=== PATIENT | male | born 1955 | race Caucasian/White ===

== ENCOUNTER → 2019-02-02 08:05 | Outpatient (CLI) | payer OTHER, SELFPAY ==
[2019-02-02 09:21] LABS: Hematocrit 41.7 % (41-53); Hemoglobin 14.2 g/dL (13.5-17.5); Mean Corpuscular HGB Conc 34.1 % (30-36); Mean Corpuscular Hemoglobin 31.5 PG (26-34); Mean Corpuscular Volume 92.4 fL (80-100); Platelet Count 221 X10^3/uL (150-400); Red Blood Cell Count 4.51 X10^6/uL (4.5-5.9); Red Cell Distribution Width 13.9 % (11.6-14.8); White Blood Cell Count 6.7 X10^3/uL (4.5-11.0)
[2019-02-02 09:25] LABS: Alanine Aminotransferase 45 IU/L (21-72); Albumin 4.4 g/dL (3.5-5.0); Albumin Globulin Ratio 1.5 (1.0-2.8); Alkaline Phosphatase 72 U/L (38-126); Aspartate Aminotransferase 34 IU/L (17-59); Bilirubin Total 0.9 mg/dL (0.2-1.3); Blood Urea Nitrogen 16 mg/dL (9-20); Calcium 9.4 mg/dL (8.4-10.2); Carbon Dioxide 30 mmol/L (22-32); Chloride 101 mmol/L (98-107); Cholesterol 219 mg/dL (140-199); Estimated Glomerular Filt Rate > 60.0 mL/min (>60); Globulin 2.9 g/dL (1.7-4.1); Glucose 105 mg/dL (80-110); HDL Cholesterol 60 mg/dL (40-60); HEMOLYSIS < 15 (0-50); LDL Cholesterol Calculated 128 mg/dL (<100); Potassium 4.4 mmol/L (3.4-5.1); Sodium 139 mmol/L (137-145); Total Protein 7.3 g/dL (6.3-8.2); Triglycerides 154 mg/dL (35-150)
[2019-02-02 09:52] LABS: Prostate Specific Antigen Scrn 1.77 ng/mL (0.1-4.0)
[2019-02-02 10:11] LABS: Neutrophils Absolute Manual 3886 /uL (3000-5900); Total Cells Counted 100
[2019-02-02 10:12] LABS: RBC Morphology Normal Morphology
[2019-02-02 10:21] LABS: TSH w/ Reflex to FT4 4.02 uIU/mL (0.47-4.68)
== END ==
PROVIDERS: PCP Family Medicine; Visit Provider Family Medicine
DX: I10 Essential (primary) hypertension (principal)
CPT/HCPCS: 36415; 80053; 80061; 84443; 85025; G0103

== ENCOUNTER → 2021-03-01 08:27 | Outpatient (CLI) | payer MEDICARE, OTHER, SELFPAY ==
[2021-03-01 09:36] LABS: Add Manual Diff / Slide Review NO; Basophils Absolute Auto 100 /uL (0-100); Basophils Percent Auto 0.7 % (0-2); Eosinophils Absolute Auto 100 /uL (0-450); Eosinophils Percent Auto 1.9 % (2-4); Hematocrit 43.1 % (41-53); Hemoglobin 14.5 g/dL (13.5-17.5); Lymphocytes Absolute Auto 1700 /uL (1100-4500); Lymphocytes Percent Auto 23.9 % (25-40); Mean Corpuscular HGB Conc 33.7 % (30-36); Mean Corpuscular Hemoglobin 30.9 PG (26-34); Mean Corpuscular Volume 91.7 fL (80-100); Monocytes Absolute Auto 800 /uL (0-900); Monocytes Percent Auto 10.4 % (3-14); Neutrophils Absolute Auto 4500 /uL (1500-7000); Neutrophils Percent Auto 63.1 % (50-75); Platelet Count 207 X10^3/uL (150-400); Red Cell Distribution Width 13.5 % (11.6-14.8); White Blood Cell Count 7.2 X10^3/uL (4.5-11.0)
[2021-03-01 09:57] LABS: Alanine Aminotransferase 66 IU/L (<50); Albumin 4.2 g/dL (3.5-5.0); Albumin Globulin Ratio 1.4 (1.0-2.8); Alkaline Phosphatase 75 U/L (38-126); Aspartate Aminotransferase 46 IU/L (17-59); BUN Creatinine Ratio 19.4 (6-22); Blood Urea Nitrogen 19 mg/dL (9-20); Calcium 9.7 mg/dL (8.4-10.2); Carbon Dioxide 32 mmol/L (22-32); Chloride 97 mmol/L (98-107); Cholesterol 232 mg/dL (140-199); Estimated Glomerular Filt Rate > 60.0 mL/min (>60); Globulin 2.9 g/dL (1.7-4.1); Glucose 118 mg/dL (80-110); HDL Cholesterol 60 mg/dL (40-60); HEMOLYSIS < 15 (0-50); LDL Cholesterol Calculated 146 mg/dL (<100); Potassium 4.8 mmol/L (3.4-5.1); Sodium 137 mmol/L (137-145); Total Protein 7.1 g/dL (6.3-8.2); Triglycerides 128 mg/dL (35-150)
== END ==
PROVIDERS: PCP Family Medicine; Referring Provider Family Medicine; Visit Provider Family Medicine
DX: E78.5 Hyperlipidemia, unspecified (principal)
CPT/HCPCS: 36415; 80053; 80061; 85025

== ENCOUNTER → 2021-05-26 10:29 | Outpatient (CLI) | payer MEDICARE, OTHER, SELFPAY ==
[2021-05-26 12:43] LABS: COVID19 -Nasal RAPID Negative (Negative)
== END ==
PROVIDERS: PCP Family Medicine; Visit Provider Surgery
DX: Z01.812 Encounter for preprocedural laboratory examination (principal); Z20.822 Contact with and (suspected) exposure to COVID-19
CPT/HCPCS: 87635; C9803

== ENCOUNTER 2021-05-27 13:12 | Day surgery (SDC) | payer MEDICARE, OTHER, SELFPAY ==
--- NOTE | 2021-05-27 | PATH_ITS ---
[facility] Accession Number: [id number] . 01 Material submitted: . sigmoid colon - SIGMOID POLYP . 02 Diagnosis: Sigmoid Colon, Polyp, Biopsy: Tubular adenoma. MRV 05/31/2021 1212 Local . 02 Electronically signed: . Veronica Dyson MD, Pathologist NPI- [id number] . 01 Gross description: . SIGMOID POLYP: Received in formalin is 1 fragment(s) of giang, soft tissue measuring 1.3 x 1.0 x 0.6 cm submitted entirely in 1 cassette(s) /MILI 05/28/2021 0657 Local . 02 Pathologist provided ICD-10: D12.5 . 02 CPT . 717997 Performed at: 01 [facility] [address] [id number] MD Davion Humphrey MD Phone: [phone] Performed at: 02 [facility] [address] [place], [place] [id number] MD Veronica Dyson MD Phone: [phone]
[2021-05-27 13:59] VITALS: BMI 32.3
[2021-05-27 14:20] VITALS: BP 125/79; PULSE 101; RESP 18; TEMP 36.7; O2SAT 99
[2021-05-27] MEDS: LACTATED RINGERS 1,000 ML 200 ML IV (14:23)
--- NOTE | 2021-05-27 14:33 | PM.HP.1 ---
History of Present Illness History of Present Illness Date Patient Seen: 05/27/21 Time Patient Seen: 14:33 Date of Onset of Symptoms: 05/27/21 Chief complaint: SDC Narrative: The patient presents for colorectal sreening. Previous colonoscopy 10 years ago demonstrated 2 benign polyps. No personal or family history of colon cancer. On further history denies any recent gastrointestinal symptoms. No nausea, vomiting, abdominal pain, loss of appetite, unexplained weight loss, change in bowel habits, diarrhea, constipation, melena, hematochezia, or bright red blood per rectum. Patient History Family & Social History Social History: household members spouse lives independently Yes caregiver/support person No other Patient has Advance Directives, DPAHC. Does not wish to starve to . Tobacco & Substance use: Smoking Status Never smoker alcohol intake current alcohol intake frequency 0-2 drinks per day Substance Use Type does not use Meds Home Medications and Allergies Home Medications Medication Instructions Recorded Confirmed Type lisinopril 20 tab 05/27/21 History mg-hydrochlorothiazide 12.5 mg tablet Allergies Allergy/AdvReac Type Severity Reaction Status Date / Time No Known Allergies Allergy Unknown Uncoded 05/27/21 13:55 Review of Systems Review of Systems Narrative: A 10 point review of systems is negative except as noted in the HPI Exam Vital Signs (past 8 hours): - 05/27/21 14:20 Temperature 98.1 F Pulse Rate 101 H Respiratory Rate 18 Blood Pressure 125/79 Pulse Oximetry 99 Oxygen Delivery Method Room Air Narrative Exam Narrative: Constitutional-he is oriented to person, place and time. No apparent distress Cardiovascular- regular rate, no peripheral edema Pulmonary-unlabored respiratory effort, no audible wheezing Abdominal-soft, non-tender, non-distended Musculoskeletal-no cyanosis or clubbing Neurological-nonfocal, normal strength throughout, normal gait. Skin-warm and dry Assessment & Plan Assessment & Plan narrative: The patient requires colorectal screening and colonoscopy is recommended. Technical details were discussed. Risks, benefits, alternatives explained. Risks including but not limited to myocardial infarction, aspiration, bleeding, pain, missed lesion, incomplete examination, need for further radiographic studies, colonic perforation, and need for major abdominal surgery were discussed. All questions were answered to their satisfaction, and they are in agreement with this plan.
--- NOTE | 2021-05-27 15:05 | PM.OP.ENDO ---
Operative Date/Time/Diagnoses Date of procedure: 05/27/21 Time of procedure: 15:05 Pre-op diagnosis: screening colonoscopy Post-op diagnosis: other (colonic polyp) Procedure & Clinicians Study performed: colonoscopy and polypectomy Same procedure as scheduled: Yes Indications: screening Surgeon: Eliecer Terrell Procedure Notes Procedure in detail: Medications: Conscious sedation using 5mg IV midazolam and 100mcg IV of fentanyl The history and physical was performed/updated and the patient is ASA class is 2. The procedure was discussed in detail with the patient. Potential risks complications including infection, bleeding, missed diagnosis, perforation, need for surgery, and were explained. Their questions were answered and informed consent was obtained. Patient was brought to the procedure room and placed standard monitoring equipment. The patient's vital signs were monitored continuously throughout the entire procedure. Prior to starting time-out was performed. The patient was placed in the left lateral recumbent position. Procedural sedation was administered. Examination began with a thorough inspection of the perianal area there was no evidence of fissures, fistulae, external hemorrhoids or cutaneous malignancy. The colonoscopy scope was then placed into the anal canal and was advanced to the cecum, which was identified by the ileocecal valve, the appendiceal orifice and the confluence of the taenia. The scope was then slowly withdrawn examining colon thoroughly in all directions, irrigating it of any residual stool. FINDINGS 1. 1 Cm pedunculated polyp in the sigmoid colon 40 cm from the anal verge removed with hot snare. Site of polypectomy was infiltrated with 3 mL of 10 to spread across 3 quadrants distal to the lesion. 2. Mild Sigmoid diverticulosis The patient tolerated the procedure well. They will be discharged once criteria are met. The prep was of good/excellent quality. The withdrawl time was 12 minutes. The sedation time was 25 minutes.. Specimen(s): other (sigmoid polyp) Complications: none Impression: colonic polyp Post-procedure Recommendations: Colonscopy in 5 years Disposition: same day surgery
[2021-05-27] MEDS: MIDAZOLAM 5 MG/5 ML VIAL IV (15:08)
[2021-05-27] MEDS: fentaNYL 250 MCG/5 ML INJ IV (15:08)
[2021-05-27 15:10] VITALS: BP 97/60; PULSE 98; RESP 12; TEMP 37.1; O2SAT 98
--- NOTE | 2021-05-27 15:12 | SUR.PHASEI ---
Received to PACU after colonoscopy with sedation. Report from URIEL Grant.
[2021-05-27 15:15] VITALS: BP 105/56; PULSE 94; RESP 12; O2SAT 97
[2021-05-27 15:20] VITALS: BP 90/57; PULSE 93; RESP 12; O2SAT 97
[2021-05-27 15:25] VITALS: BP 102/67; PULSE 98; RESP 16; TEMP 36.7; O2SAT 98
[2021-05-27 15:46] VITALS: BP 108/63; PULSE 92; RESP 14; TEMP 36.1; O2SAT 99
== END 2021-05-27 16:20 | disposition home or self-care (01) ==
PROVIDERS: PCP Family Medicine; Referring Provider Surgery; Visit Provider Surgery
PROC: 0DJD8ZZ Inspection of Lower Intestinal Tract, Via Natural or Artificial Opening Endoscopic (ICD-10-PCS; CPT 45378; principal; 2021-05-27 14:30)
DX: Z12.11 Encounter for screening for malignant neoplasm of colon (principal); Z86.010 Personal history of colon polyps; D12.5 Benign neoplasm of sigmoid colon; K57.30 Diverticulosis of large intestine without perforation or abscess without bleeding
CPT/HCPCS: 45385; 99152; J2250; J3010

== ENCOUNTER 2021-10-14 12:22 | Observation (INO) | payer MEDICARE, OTHER, SELFPAY ==
[2021-10-14] VITALS (18 sets, daily range): BP systolic 144–183; BP diastolic 76–96; PULSE 70–118; RESP 8–27; TEMP 36.4–37.4; O2SAT 95–100; BMI 30.1
--- NOTE | 2021-10-14 12:28 | DI.RAD.S_ITS ---
PROCEDURE: XR CHEST 1V INDICATIONS: chest pain TECHNIQUE: One view of the chest was acquired. COMPARISON: None. FINDINGS: Surgical changes and devices: None. Lungs and pleura: No consolidation, pleural effusions or pneumothorax. Mediastinum: Mediastinal contours appear normal. Heart size is normal. Bones and chest wall: No suspicious bony lesions. Overlying soft tissues appear unremarkable. IMPRESSION: No acute cardiopulmonary abnormality. Dictated by: Nir Paige M.D. on 10/14/2021 at 13:20 Approved by: Nir Paige M.D. on 10/14/2021 at 13:21
[2021-10-14 12:46] LABS: Add Manual Diff / Slide Review NO; Basophils Absolute Auto 100 /uL (0-100); Basophils Percent Auto 0.8 % (0-2); Eosinophils Absolute Auto 0 /uL (0-450); Eosinophils Percent Auto 0.6 % (2-4); Hematocrit 41.4 % (41-53); Hemoglobin 14.1 g/dL (13.5-17.5); Lymphocytes Absolute Auto 1600 /uL (1100-4500); Lymphocytes Percent Auto 21.4 % (25-40); Mean Corpuscular Hemoglobin 31.6 PG (26-34); Monocytes Absolute Auto 600 /uL (0-900); Monocytes Percent Auto 8.3 % (3-14); Neutrophils Absolute Auto 5300 /uL (1500-7000); Neutrophils Percent Auto 68.9 % (50-75); Platelet Count 215 X10^3/uL (150-400); Red Blood Cell Count 4.45 X10^6/uL (4.5-5.9); Red Cell Distribution Width 13.8 % (11.6-14.8); White Blood Cell Count 7.6 X10^3/uL (4.5-11.0)
[2021-10-14 13:24] LABS: Alanine Aminotransferase 77 IU/L (<50); Albumin 4.5 g/dL (3.5-5.0); Albumin Globulin Ratio 1.3 (1.0-2.8); Alkaline Phosphatase 80 U/L (38-126); Aspartate Aminotransferase 64 IU/L (17-59); BUN Creatinine Ratio 16.3 (6-22); Bilirubin Total 1.1 mg/dL (0.2-1.3); Blood Urea Nitrogen 15 mg/dL (9-20); Calcium 9.6 mg/dL (8.4-10.2); Carbon Dioxide 29 mmol/L (22-32); Chloride 98 mmol/L (98-107); Creatine Kinase 76 U/L (55-170); Estimated Glomerular Filt Rate > 60.0 mL/min (>60); Globulin 3.5 g/dL (1.7-4.1); Glucose 171 mg/dL (80-110); HEMOLYSIS < 15 (0-50); Lipase 64 U/L (23-300); Magnesium 1.9 mg/dL (1.6-2.3); Potassium 3.5 mmol/L (3.4-5.1); Sodium 135 mmol/L (137-145)
--- NOTE | 2021-10-14 13:26 | ED.CHESTPAIN ---
HPI - Chest Pain General Chief Complaint: Chest Pain Stated Complaint: Thinks Having a Heart Attack Time Seen by Provider: 10/14/21 13:03 Source: patient Mode of arrival: Ambulatory Limitations: no limitations Limitations: no limitations History of Present Illness HPI narrative: the patient initially developed central sternal chest pain 2 days ago. Pain resolved without intervention. He developed chest pain again this morning. Pain is currently 4/10, in the upper central sternal region. There is no radiation pain. His no GI discomfort. He has no history of GERD. He denies dyspnea. He was diaphoretic and dizzy upon arrival, this has resolved. Chest pain persist. He has no history of CAD. He is on medications hypertension. He took baby aspirin this morning with onset of symptoms. He denies recent illness. He has no headache, sore throat, cough or dyspnea. He denies orthopnea. He has occasional peripheral edema, none now. Related Data Previous Rx's Medication Instructions Recorded losartan 50 mg-hydrochlorothiazide 1 tab PO BID #60 tab 07/12/21 12.5 mg tablet Allergies Allergy/AdvReac Type Severity Reaction Status Date / Time No Known Drug Allergies Allergy Verified 10/14/21 12:26 Review of Systems Constitutional Constitutional: Reports as per HPI, Denies body ache(s), Denies chills, Denies fatigue, Denies fever(s) and Denies headache(s) Eyes Eyes: Denies change in vision ENT Ears, Nose, Mouth, and Throat: Denies vertigo, Denies dizziness and Denies headache(s) Cardiovascular Cardiovascular: Reports chest pain, Denies syncope, Denies palpitations and Denies dyspnea Respiratory Respiratory: Denies dyspnea Gastrointestinal Gastrointestinal: Denies abdominal pain, Denies heartburn and Denies nausea Genitourinary Comments: no urinary symptoms. Musculoskeletal Musculoskeletal: Denies back pain Comments: No lower extremity edema currently. Integumentary/Breasts Skin/Breast: Denies lesions and Denies rash Neurologic Neurologic: Denies confusion, Denies vertigo, Denies dizziness, Denies syncope and Denies headache(s) Psychiatric Psychiatric: Denies confusion Endocrine Endocrine: Denies fatigue and Denies palpitations Hematologic/Lymphatic On Anticoagulants: No Patient History Medical History (Updated 10/14/21 @ 15:19 by Adalberto Beaver MD) Hyperlipidemia Hypertension Social History marital status: details: Has multiple family members in the medical field he relies on for advise. household members: spouse lives independently: Yes caregiver/support person: No housing: house Previous occupational history: Retired [employer]. tomy/confucianism: [employer] special tomy needs: Yes other: Patient has Advance Directives, DPAHC. Does not wish to starve to . Smoking Status: Never smoker alcohol intake: current substance use type: does not use Smoking Status: Never smoker alcohol intake frequency: 3 or more drinks per day Substance Use Type: marijuana Exam Initial Vital Signs Initial Vital Signs: Vital Signs Temperature 97.5 F L 10/14/21 12:26 Pulse Rate 118 H 10/14/21 12:26 Respiratory Rate 16 10/14/21 12:26 Blood Pressure 174/91 H 10/14/21 12:26 Pulse Oximetry 99 10/14/21 12:26 Const General: cooperative, healthy appearing and comfortable HENNC Head: normocephalic and atraumatic Face and sinus: normal facial exam Throat: posterior oropharynx normal Eyes General: appearance normal, both eyes and all related structures Neck Neck: full ROM and No JVD Chest Chest: normal inspection of the chest Resp Effort & Inspection: normal respiratory effort Auscultation: clear to auscultation bilaterally Cardio Rate: regular rate Rhythm: regular rhythm Heart Sounds: S1 normal, S2 normal, no gallops, no murmurs and no rubs Pulses: radial pulses present GI Inspection: normal to inspection Palpation: soft and No tender Auscultation: normal bowel sounds Back/Spine/Pelvis Back: normal to inspection and No back tenderness Skin General: no rashes or lesions noted Neuro General: patient alert, patient awake, patient oriented x3 and no focal motor deficits Extrem General: normal to inspection, no pedal edema, no calf tenderness and muscle hypertrophy Psych Appearance: grossly normal Course Course Course Narrative: The patient took aspirin at home prior to arrival. He arrives with tachycardia, diaphoresis and dizziness. There are no EKG changes. His given sublingual nitro as well as IV metoprolol. His chest pain quickly resolved. Troponin is negative. He remains pain-free. Heparin drip was started. The situation is was discussed with the patient as well as his PCM, Dr. Evans. He will be admitted to Dr. Evans for ongoing evaluation. 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) Stat Discontinued Medications Metoprolol Tartrate (Metoprolol Tartrate 5 Mg/5 Ml Inj) 5 mg IV Q5M [facility] Stop: 10/14/21 13:41 Last Admin: 10/14/21 14:11 Dose: Not Given Documented by: Admin: 10/14/21 14:11 Dose: Not Given Documented by: Admin: 10/14/21 13:52 Dose: 5 mg Documented by: KEELEY Nitroglycerin (Nitroglycerin 0.3 Mg Sl Tab) 0.3 mg SL NOW ONE Stop: 10/14/21 13:28 Last Admin: 10/14/21 13:43 Dose: 0.3 mg Documented by: KEELEY Vital Signs Vital signs: Vital Signs - 8 hr 10/14/21 12:26 10/14/21 12:47 10/14/21 12:48 Temperature 97.5 F L Pulse Rate 118 H 111 H 105 H Respiratory Rate 16 12 12 Blood Pressure 174/91 H 183/96 H Pulse Oximetry 99 100 99 10/14/21 13:00 10/14/21 13:30 10/14/21 13:43 Temperature Pulse Rate 104 H 98 H 102 H Respiratory Rate 10 L 8 L Blood Pressure 163/78 H 158/76 H 158/76 H Pulse Oximetry 98 98 10/14/21 13:51 10/14/21 13:55 10/14/21 14:00 Temperature Pulse Rate 91 H 83 80 Respiratory Rate 16 10 L 12 Blood Pressure 153/83 H 151/80 H 149/80 H Pulse Oximetry 97 97 97 10/14/21 14:05 Temperature Pulse Rate 78 Respiratory Rate 15 Blood Pressure 151/84 H Pulse Oximetry 98 MDM - Chest Pain Lab Data Result diagrams: 10/14/21 12:35 10/14/21 12:35 Labs: Lab Results 10/14/21 10/14/21 10/14/21 Range/Units 12:35 12:35 12:35 WBC 7.6 (4.5-11.0) X10^3/uL RBC 4.45 L (4.5-5.9) X10^6/uL Hgb 14.1 (13.5-17.5) g/dL Hct 41.4 (41-53) % MCV 93.0 (80-100) fL MCH 31.6 (26-34) PG MCHC 34.0 (30-36) % RDW 13.8 (11.6-14.8) % Plt Count 215 (150-400) X10^3/uL Neut % (Auto) 68.9 (50-75) % Lymph % (Auto) 21.4 L (25-40) % Morrison % (Auto) 8.3 (3-14) % Eos % (Auto) 0.6 L (2-4) % Baso % (Auto) 0.8 (0-2) % Neut # (Auto) 5300 (7637-9154) /uL Lymph # (Auto) 1600 (2069-3295) /uL Morrison # (Auto) 600 (0-900) /uL Eos # (Auto) 0 (0-450) /uL Baso # (Auto) 100 (0-100) /uL PT 11.2 (10.1-12.7) SECONDS INR 1.0 (0.9-1.3) Sodium 135 L (137-145) mmol/L Potassium 3.5 (3.4-5.1) mmol/L Chloride 98 (98-107) mmol/L Carbon Dioxide 29 (22-32) mmol/L BUN 15 (9-20) mg/dL Creatinine 0.92 (0.66-1.25) mg/dL Estimated GFR > 60.0 (>60) mL/min BUN/Creatinine Ratio 16.3 (6-22) Glucose 171 H (80-110) mg/dL Calcium 9.6 (8.4-10.2) mg/dL Magnesium 1.9 (1.6-2.3) mg/dL Total Bilirubin 1.1 (0.2-1.3) mg/dL AST 64 H (17-59) IU/L ALT 77 H (<50) IU/L Alkaline Phosphatase 80 (38-126) U/L Total Creatine Kinase 76 (55-170) U/L CK-MB (CK-2) TNP CK-MB (CK-2) Rel Index TNP Troponin I < 0.012 (0.01-0.034) ng/mL NT-Pro-B Natriuret Pep (<125) pg/mL Total Protein 8.0 (6.3-8.2) g/dL Albumin 4.5 (3.5-5.0) g/dL Globulin 3.5 (1.7-4.1) g/dL Albumin/Globulin Ratio 1.3 (1.0-2.8) Lipase 64 (23-300) U/L 10/14/21 Range/Units 12:35 WBC (4.5-11.0) X10^3/uL RBC (4.5-5.9) X10^6/uL Hgb (13.5-17.5) g/dL Hct (41-53) % MCV (80-100) fL MCH (26-34) PG MCHC (30-36) % RDW (11.6-14.8) % Plt Count (150-400) X10^3/uL Neut % (Auto) (50-75) % Lymph % (Auto) (25-40) % Morrison % (Auto) (3-14) % Eos % (Auto) (2-4) % Baso % (Auto) (0-2) % Neut # (Auto) (5920-4670) /uL Lymph # (Auto) (7523-3280) /uL Morrison # (Auto) (0-900) /uL Eos # (Auto) (0-450) /uL Baso # (Auto) (0-100) /uL PT (10.1-12.7) SECONDS INR (0.9-1.3) Sodium (137-145) mmol/L Potassium (3.4-5.1) mmol/L Chloride (98-107) mmol/L Carbon Dioxide (22-32) mmol/L BUN (9-20) mg/dL Creatinine (0.66-1.25) mg/dL Estimated GFR (>60) mL/min BUN/Creatinine Ratio (6-22) Glucose (80-110) mg/dL Calcium (8.4-10.2) mg/dL Magnesium (1.6-2.3) mg/dL Total Bilirubin (0.2-1.3) mg/dL AST (17-59) IU/L ALT (<50) IU/L Alkaline Phosphatase (38-126) U/L Total Creatine Kinase (55-170) U/L CK-MB (CK-2) CK-MB (CK-2) Rel Index Troponin I (0.01-0.034) ng/mL NT-Pro-B Natriuret Pep 22 (<125) pg/mL Total Protein (6.3-8.2) g/dL Albumin (3.5-5.0) g/dL Globulin (1.7-4.1) g/dL Albumin/Globulin Ratio (1.0-2.8) Lipase (23-300) U/L ABG Data Attestation: I personally reviewed and interpreted this ABG as follows: Imaging Data Chest x-ray: Radiologist's Impression: No acute cardiopulmonary process identified. ECG Data Attestation: I personally reviewed and interpreted this ECG as follows: ( sinus tachycardia rate 111 beats per minute. Normal intervals. No ectopy. No acute ST T wave changes.) Critical Care Time Critical Care Time Critical Care Time: Yes Total Critical Care Time: 40 Attestation: Critical care time included initial evaluation of patient, review of past medical history, and evaluation EKG lab in radiology data. I discussed the situation with the patient, and consulted with his PCM regarding admission. Discharge Plan Departure Patient Disposition: Admitted as Observation Clinical Impression: New-onset angina, Hypertension Admit Date/Time: 10/14/21 14:43 Admit Provider: Bill Evans
[2021-10-14 13:35] LABS: Prothrombin Time 11.2 SECONDS (10.1-12.7); Troponin I < 0.012 ng/mL (0.01-0.034)
[2021-10-14] MEDS: NITROGLYCERIN 0.3 MG SL TAB SL (13:43)
[2021-10-14] MEDS: METOPROLOL TARTRATE 5 MG/5 ML INJ IV (13:52)
--- NOTE | 2021-10-14 14:08 | PC.NURSE ---
Patient responded well to one dose SL nitroglycerin; rates pain between 0-1 after one dose. HR lowered to 80 from 100 after 5ml iv metoprolol.
[2021-10-14 14:17] LABS: NT-proBNP (BNP-Adult 18+) 22 pg/mL (<125)
[2021-10-14 15:11] LABS: COVID19 - ADMIT (NP swab/PCR) Negative (Negative)
[2021-10-14] MEDS: HEPARIN 5,000 UNIT/ML VIAL 5000 UNIT IV (15:45)
[2021-10-14] MEDS: HEPARIN DRIP 25,000 UNIT/500 ML IV.SOLN 20 UNIT IV (15:45)
[2021-10-14 16:07] LABS: PTT Partial Thromboplastin Tim 33 SECONDS (26.4-36.2)
--- NOTE | 2021-10-14 16:28 | P.HP_ITS ---
History of Present Illness History of Present Illness Date Patient Seen: 10/14/21 Time Patient Seen: 16:28 Chief complaint: Thinks Having a Heart Attack Narrative: 66-year-old male who presents this afternoon to the emergency department with a chief complaint thinking that he has a heart attack. Patient is a 66-year-old male with a history of hypertension and hyperlipidemia presents to the emergency department with chest pain. 66-year-old male who says he has been in his usual state health but just busy doing projects at home over the last few weeks to month or so. He has been doing a little bit more activity and exercise 2 days ago while at the market began to not feel well. He felt a little bit dizzy some pressure in his chest little bit of shortness of breath he was pulling out of the park it with his and thought maybe he should go to the emergency department or stop at the fire department. He continued driving to his [place] and by the time he got there he felt better. The following day he said was a good day he did lots of work and activity without any problems. This morning about 11:00 a.m. he was downstairs working in his basement. He began to feel the symptoms come on again he describes midsternal chest pressure. He became sweaty on his upper face in his feet. Feels a little nauseated and lightheaded and dizzy. This time the pain did not resolve became concerned chewed with baby aspirin and took another aspirin and had as drive him to the emergency department. He said during the episode of chest pain at home this was accompanied by a rapid heart rate into the 120s to 130 is a did not feel lik e it was beating irregularly does not recollect that he has ever had a heartbeat so fast. Patient was concerned that he was maybe having a heart attack. Before these 2 events he has never really had any chest pain. No elevation of his heart rate. He describes working a little bit harder and having lots of projects and working on his weight and exercise at the beginning of this year. Patient is not an active smoker. He is . Patient History Medical History (Updated 10/14/21 @ 17:06 by Bill Evans MD) Hyperlipidemia Hypertension Family & Social History Social History: household members spouse lives independently Yes caregiver/support person No other Patient has Advance Directives, DPAHC. Does not wish to starve to . Safety & Behavioral: Feels Safe in Current Yes Environment Been Physically Hurt or No Threatened By a Person Tobacco & Substance use: Smoking Status Never smoker alcohol intake current alcohol intake frequency 3 or more drinks per day Substance Use Type marijuana Meds Home Medications and Allergies Home Medications Medication Instructions Recorded Confirmed Type losartan 50 mg-hydrochlorothiazide 1 tab PO BID #60 tab 07/12/21 10/14/21 Rx 12.5 mg tablet Allergies Allergy/AdvReac Type Severity Reaction Status Date / Time No Known Drug Allergies Allergy Verified 10/14/21 12:26 Exam Vital Signs (past 8 hours): - 10/14/21 12:26 10/14/21 12:47 10/14/21 12:48 Temperature 97.5 F L Pulse Rate 118 H 111 H 105 H Respiratory Rate 16 12 12 Blood Pressure 174/91 H 183/96 H Pulse Oximetry 99 100 99 10/14/21 13:00 10/14/21 13:30 10/14/21 13:43 Temperature Pulse Rate 104 H 98 H 102 H Respiratory Rate 10 L 8 L Blood Pressure 163/78 H 158/76 H 158/76 H Pulse Oximetry 98 98 10/14/21 13:51 10/14/21 13:55 10/14/21 14:00 Temperature Pulse Rate 91 H 83 80 Respiratory Rate 16 10 L 12 Blood Pressure 153/83 H 151/80 H 149/80 H Pulse Oximetry 97 97 97 10/14/21 14:05 10/14/21 14:30 10/14/21 15:00 Temperature Pulse Rate 78 80 85 Respiratory Rate 15 12 27 H Blood Pressure 151/84 H 154/77 H Pulse Oximetry 98 99 100 Oxygen Delivery Method Room Air Narrative Exam Narrative: Gen.: Alert no apparent distress pain-free HEENT: NCAT PERRLA tympanic membranes are clear nares are patent oral mucosa is moist no tonsillar hypertrophy neck is supple without lymphadenopathy no thyroid enlargement. Cardio: S1-S2 regular rate and rhythm no murmurs appreciated. Respiratory: Lungs are clear to auscultation no wheezes or crackles normal respiratory effort. Abdomen: Soft nontender no rebound or guarding no liver spleen enlargement no appreciable hernias Extremities: Full range of motion no appreciable weakness no cyanosis or edema. Neurologic: Grossly intact. Objective Labs Result Diagrams: 10/14/21 12:35 10/14/21 12:35 Labs: Laboratory Results - last 24 hr 10/14/21 10/14/21 10/14/21 12:35 12:35 12:35 WBC 7.6 RBC 4.45 L Hgb 14.1 Hct 41.4 MCV 93.0 MCH 31.6 MCHC 34.0 RDW 13.8 Plt Count 215 Neut % (Auto) 68.9 Lymph % (Auto) 21.4 L [place] % (Auto) 8.3 Eos % (Auto) 0.6 L Baso % (Auto) 0.8 Neut # (Auto) 5300 Lymph # (Auto) 1600 [place] # (Auto) 600 Eos # (Auto) 0 Baso # (Auto) 100 PT 11.2 INR 1.0 APTT Sodium 135 L Potassium 3.5 Chloride 98 Carbon Dioxide 29 BUN 15 Creatinine 0.92 Estimated GFR > 60.0 BUN/Creatinine Ratio 16.3 Glucose 171 H Calcium 9.6 Magnesium 1.9 Total Bilirubin 1.1 AST 64 H ALT 77 H Alkaline Phosphatase 80 Total Creatine Kinase 76 CK-MB (CK-2) TNP CK-MB (CK-2) Rel Index TNP Troponin I < 0.012 NT-Pro-B Natriuret Pep Total Protein 8.0 Albumin 4.5 Globulin 3.5 Albumin/Globulin Ratio 1.3 Lipase 64 SARS-CoV-2 (PCR) 10/14/21 10/14/21 10/14/21 12:35 12:35 14:05 WBC RBC Hgb Hct MCV MCH MCHC RDW Plt Count Neut % (Auto) Lymph % (Auto) [place] % (Auto) Eos % (Auto) Baso % (Auto) Neut # (Auto) Lymph # (Auto) [place] # (Auto) Eos # (Auto) Baso # (Auto) PT INR APTT 33 Sodium Potassium Chloride Carbon Dioxide BUN Creatinine Estimated GFR BUN/Creatinine Ratio Glucose Calcium Magnesium Total Bilirubin AST ALT Alkaline Phosphatase Total Creatine Kinase CK-MB (CK-2) CK-MB (CK-2) Rel Index Troponin I NT-Pro-B Natriuret Pep 22 Total Protein Albumin Globulin Albumin/Globulin Ratio Lipase SARS-CoV-2 (PCR) Negative Assessment & Plan Assessment and plan (1) Unstable angina: Status: Acute Plan Unstable angina patient with unstable angina with chest pain diaphoresis shortness of breath risk factors include hypertension and hyperlipidemia. Patient's evaluation in the emergency room showed normal cardiac enzymes CPK and troponin. Chest x-ray normal EKG shows sinus tachycardia heart rate [address] or T-wave changes. Patient was given aspirin started on heparin and a beta-kajal. Given nitroglycerin and his pain has resolved. Patient currently pain free. Plan. Patient will be continued on heparin drips per protocol. He will be started on metoprolol immediate release 25 mg p.o. q.4 hours. Nitroglycerin as needed. He will be started on his home blood pressure medication of losartan hydrochlorothiazide. Will be placed on aspirin 325 mg a day. Will add a BNP to his blood work and a lipid panel. Patient will be started on a high-dose statin. And have an evaluation with an echocardiogram. Will continue with serial cardiac enzymes. If these are negative we will proceed with a Cardiolite stress test. If they turn positive he will need intervention for his acute coronary syndrome. On his admission to the hospital as COVID test is negative. Essential hypertension. Patient on losartan hydrochlorothiazide at home we will continue this medication Mixed hyperlipidemia. Patient has a history of mildly elevated LDL cholesterol. Will be started on high-dose statin. Code status full code. Admission as observation Disposition and plan echocardiogram serial cardiac enzymes if negative Cardiolite stress test. If positive cardiac catheterization. Time Spent With Patient Critical Care time: I spent a total of [] minutes of critical care time on this patient's care today; this time is exclusive of procedural time.
--- NOTE | 2021-10-14 16:34 | DI.ECHO.S_ITS ---
[facility] +---------+ : : [address] : : : : [id number] : : : : Phone: [phone]+ Echocardiogram Report + + :Name: MICAELA MAYNARD Study Date: 10/14/2021 Height: 70 in : :[facility] ReadingLocation: Weight: 210 lb : : Gender: Male BSA: 2.1 m2 : :: 1955 Age: 66 yrs BP: 151/84 mmHg: :Reason For Study: CHEST PAIN : :Ordering Physician: FRIDA, : :ILEANA Performed By: Josey Gambino : :Referring: ILEANA GALICIA : + + Interpretation Summary 1) Normal left ventricular thickness, size, wall motion, and systolic function (EF 60-65%). 2) Normal right ventricular size and function. 3) No significant valvular abnormalities. 4) No prior Echo available for comparison. Procedure: A two-dimensional transthoracic echocardiogram with color flow and Doppler was performed. The study quality was technically adequate. There is no prior echocardiogram noted for this patient. The patient was in sinus rhythm with heart rates between 72-80 bpm during the exam. Left Ventricle: The left ventricle is normal in size and wall thickness. The ejection fraction is estimated to be 60-65%. Left ventricular systolic function appears normal without focal wall motion abnormalities. Diastolic parameters suggest probable normal left ventricular diastolic function and normal filling pressures. Right Ventricle: The right ventricle is normal in size and function. Atria: The left atrial size is normal. Right atrial size is normal. There is no Doppler evidence for an interatrial shunt. Mitral Valve: The mitral valve is normal in structure and function. There is trace mitral regurgitation. Aortic Valve: The aortic valve is trileaflet. The aortic valve opens well. There is no aortic valve stenosis. No aortic regurgitation is present. Tricuspid Valve: The tricuspid valve is normal in structure and function. There is a trace or physiologic amount of tricuspid regurgitation. Pulmonic Valve: The pulmonic valve leaflets are thin and pliable; valve motion is normal. There is trace pulmonic regurgitation. Great Vessels: The aortic root is normal size. The dimensions of the ascending aorta are normal. The IVC is of normal diameter and collapses greater than 50% with a sniff. This suggests a low right atrial pressure of 3 mm Hg. Pericardium/ Pleura There is no pericardial effusion. There is no pleural effusion. MMode/2D Measurements & Calculations LVIDd: 5.2 cm LVOT diam: 2.3 cm LVIDs: 3.3 cm Ao root diam: 3.4 cm FS: 36.4 % asc Aorta Diam: 3.2 cm IVSd: 0.64 cm LVPWd: 0.70 cm LV wilson. diameter/BSA (cm/m^2): 2.4 LV sys. diameter/BSA (cm/m^2): 1.5 LA A2 area: 20.0 cm2 RA long axis: 5.2 cm LA A4 area: 16.7 cm2 RA area: 15.4 cm2 LA length (vol): 5.0 cm RA vol: 38.4 ml LA vol: 56.5 ml RA : 18.0 ml/m2 LA vol index: 26.5 ml/m2 IVC diam: 1.8 cm RVD1 (basal): 3.7 cm TAPSE: 2.1 cm Doppler Measurements & Calculations Ao V2 max: 109.5 cm/sec LVOT Max Paulie: 90.0 cm/sec Ao V2 mean: 77.6 cm/sec LV V1 max P.2 mmHg Ao max P.8 mmHg LV V1 VTI: 18.7 cm Ao mean P.7 mmHg MILI(I,D): 3.8 cm2 Ao V2 VTI: 21.6 cm MILI(V,D): 3.6 cm2 sev ratio: 0.87 MILI indexed to BSA (cm^2/m^2): 1.8 MV E max paulie: 77.2 cm/sec PA V2 max: 85.0 cm/sec MV A max paulie: 75.3 cm/sec PA V2 mean: 60.6 cm/sec MV E/A: 1.0 PA mean P.6 mmHg Med Peak E' Paulie: 9.5 cm/sec PA pr(Accel): 24.2 mmHg E/E' med: 8.1 Lat Peak E' Paulie: 10.9 cm/sec E/E' lat: 7.1 E/e' average: 7.6 MV dec time: 0.19 sec SV(LVOT): 81.1 ml Reading Physician:07:42 PM
[2021-10-14 17:08] LABS: PTT Partial Thromboplastin Tim 42 SECONDS (26.4-36.2)
[2021-10-14] MEDS: METOPROLOL IR 25 MG TABLET PO (18:18)
[2021-10-14 21:36] LABS: PTT Partial Thromboplastin Tim 70 SECONDS (26.4-36.2)
[2021-10-14 21:37] LABS: Creatine Kinase 59 U/L (55-170)
[2021-10-14] MEDS: hydroCHLOROthiazide 25 MG TABLET 12.5 MG PO (21:41)
[2021-10-14] MEDS: LOSARTAN 50 MG TABLET PO (21:41)
[2021-10-14 21:50] LABS: Troponin I < 0.012 ng/mL (0.01-0.034)
--- NOTE | 2021-10-14 23:44 | PC.NURSE ---
2300: PTT 70, no change to hep gtt. currently running at 1050u/21 mL / hour. double check w/ Laura, RN. next PTT in AM. patient continues to deny cp or discomfort. accepting fluids, independant w/ mobility. temp 99.2 earlier in shift when he was wearing a knit stocking cap. agreeable to remove the cap and accepted a cool wet cloth for face. cheeks flushed. has a burn on his left arm from a work project he was working on earlier in the week. this was covered by URIEL Damon. dressing is CDI. no SOB/dyspnea. frequent room checks thru the [facility], ensuring his call light is nearby and has no c/o.
[2021-10-15] MEDS: METOPROLOL IR 25 MG TABLET PO ×3 (00:31→15:22)
[2021-10-15 01:16] LABS: Troponin I < 0.012 ng/mL (0.01-0.034)
[2021-10-15 03:53] VITALS: BP 116/60; PULSE 74; RESP 16; TEMP 36.4; O2SAT 98
[2021-10-15 06:52] LABS: Add Manual Diff / Slide Review NO; Basophils Absolute Auto 0 /uL (0-100); Basophils Percent Auto 0.7 % (0-2); Eosinophils Absolute Auto 100 /uL (0-450); Eosinophils Percent Auto 1.7 % (2-4); Hematocrit 41.3 % (41-53); Hemoglobin 14.2 g/dL (13.5-17.5); Lymphocytes Absolute Auto 2100 /uL (1100-4500); Lymphocytes Percent Auto 28.7 % (25-40); Mean Corpuscular HGB Conc 34.4 % (30-36); Monocytes Absolute Auto 700 /uL (0-900); Neutrophils Absolute Auto 4300 /uL (1500-7000); Neutrophils Percent Auto 59.9 % (50-75); Platelet Count 199 X10^3/uL (150-400); Red Blood Cell Count 4.44 X10^6/uL (4.5-5.9); Red Cell Distribution Width 14.1 % (11.6-14.8); White Blood Cell Count 7.2 X10^3/uL (4.5-11.0)
[2021-10-15 06:55] LABS: Creatine Kinase 49 U/L (55-170)
[2021-10-15 06:57] LABS: Alanine Aminotransferase 65 IU/L (<50); Albumin Globulin Ratio 1.3 (1.0-2.8); Alkaline Phosphatase 65 U/L (38-126); Aspartate Aminotransferase 52 IU/L (17-59); BUN Creatinine Ratio 17.7 (6-22); Bilirubin Total 1.2 mg/dL (0.2-1.3); Blood Urea Nitrogen 14 mg/dL (9-20); Calcium 9.4 mg/dL (8.4-10.2); Carbon Dioxide 30 mmol/L (22-32); Chloride 101 mmol/L (98-107); Cholesterol 204 mg/dL (140-199); Estimated Glomerular Filt Rate > 60.0 mL/min (>60); Globulin 3.2 g/dL (1.7-4.1); Glucose 116 mg/dL (80-110); HDL Cholesterol 77 mg/dL (40-60); HEMOLYSIS < 15 (0-50); LDL Cholesterol Calculated 103 mg/dL (<100); Potassium 3.4 mmol/L (3.4-5.1); Sodium 136 mmol/L (137-145); Total Protein 7.2 g/dL (6.3-8.2); Triglycerides 121 mg/dL (35-150)
[2021-10-15 07:05] LABS: NT-proBNP (BNP-Adult 18+) 64 pg/mL (<125)
[2021-10-15 07:08] LABS: Troponin I < 0.012 ng/mL (0.01-0.034)
--- NOTE | 2021-10-15 08:01 | P.DS_ITS ---
History of Present Illness History of Present Illness Chief complaint: Thinks Having a Heart Attack Narrative: 66-year-old male who presents this afternoon to the emergency department with a chief complaint thinking that he has a heart attack. Patient is a 66-year-old male with a history of hypertension and hyperlipidemia presents to the emergency department with chest pain. 66-year-old male who says he has been in his usual state health but just busy doing projects at home over the last few weeks to month or so. He has been doing a little bit more activity and exercise 2 days ago while at the market began to not feel well. He felt a little bit dizzy some pressure in his chest little bit of shortness of breath he was pulling out of the park it with his and thought maybe he should go to the emergency department or stop at the fire department. He continued driving to his house [place] and by the time he got there he felt better. The following day he said was a good day he did lots of work and activity without any problems. This morning about 11:00 a.m. he was downstairs working in his basement. He began to feel the symptoms come on again he describes midsternal chest pressure. He became sweaty on his upper face in his feet. Feels a little nauseated and lightheaded and dizzy. This time the pain did not resolve became concerned chewed with baby aspirin and took another aspirin and had as drive him to the emergency department. He said during the episode of chest pain at home this was accompanied by a rapid heart rate into the 120s to 130 is a did not feel like it was beating irregularly does not recollect that he has ever had a heartbeat so fast. Patient was concerned that he was maybe having a heart attack. Before these 2 events he has never really had any chest pain. No elevation of his heart rate. He describes working a little bit harder and having lots of projects and working on his weight and exercise at the beginning of this year. Patient is not an active smoker. He is . Discharge Providers Provider Date of admission: 10/14/21 14:43 Discharge Date: 10/15/21 Primary care physician: Bill Evans MD Consults: 10/14/21 16:33 Consult to Discharge Planning Routine Comment: Discharge provider: Bill Evans MD Summary Hospital Course Discharge Diagnosis: Angina Hypertension Hyperlipidemia Hospital Course: 66-year-old male with a history of hypertension and hyperlipidemia who is not a smoker has no known history of coronary artery disease would is admitted to the hospital with 2 separate episodes of chest pain. Due to his age risk factors and concerning history he was admitted to the hospital for further workup and evaluation of his chest pain. Patient was admitted started on aspirin beta- kajal heparin per protocol. Patient after arrival to the emergency room and nitroglycerin and appropriate treatment had resolution of chest pain. Over the hospital stay patient had no further chest pain. EKG x2 showed no acute ST or T-wave changes cardiac telemetry was normal. Patient had serial cardiac enzymes and an echocardiogram. His echocardiogram showed no significant valvular heart disease no wall motion abnormality and normal ejection fraction. Patient went for Cardiolite stress testing Exam Vital Signs (past 8 hours): - 10/15/21 03:53 Temperature 97.6 F Pulse Rate 74 Respiratory Rate 16 Blood Pressure 116/60 Pulse Oximetry 98 Oxygen Delivery Method Room Air Oxygen Flow Rate 0 Objective Labs Result Diagrams: 10/15/21 06:03 10/15/21 06:03 Labs: Laboratory Results - last 24 hr 10/14/21 10/14/21 10/14/21 12:35 12:35 12:35 WBC 7.6 RBC 4.45 L Hgb 14.1 Hct 41.4 MCV 93.0 MCH 31.6 MCHC 34.0 RDW 13.8 Plt Count 215 Neut % (Auto) 68.9 Lymph % (Auto) 21.4 L [place] % (Auto) 8.3 Eos % (Auto) 0.6 L Baso % (Auto) 0.8 Neut # (Auto) 5300 Lymph # (Auto) 1600 [place] # (Auto) 600 Eos # (Auto) 0 Baso # (Auto) 100 PT 11.2 INR 1.0 APTT Sodium 135 L Potassium 3.5 Chloride 98 Carbon Dioxide 29 BUN 15 Creatinine 0.92 Estimated GFR > 60.0 BUN/Creatinine Ratio 16.3 Glucose 171 H Calcium 9.6 Magnesium 1.9 Total Bilirubin 1.1 AST 64 H ALT 77 H Alkaline Phosphatase 80 Total Creatine Kinase 76 CK-MB (CK-2) TNP CK-MB (CK-2) Rel Index TNP Troponin I < 0.012 NT-Pro-B Natriuret Pep Total Protein 8.0 Albumin 4.5 Globulin 3.5 Albumin/Globulin Ratio 1.3 Triglycerides Cholesterol LDL Cholesterol, Calc HDL Cholesterol Lipase 64 SARS-CoV-2 (PCR) 10/14/21 10/14/21 10/14/21 12:35 12:35 14:05 WBC RBC Hgb Hct MCV MCH MCHC RDW Plt Count Neut % (Auto) Lymph % (Auto) [place] % (Auto) Eos % (Auto) Baso % (Auto) Neut # (Auto) Lymph # (Auto) [place] # (Auto) Eos # (Auto) Baso # (Auto) PT INR APTT 33 Sodium Potassium Chloride Carbon Dioxide BUN Creatinine Estimated GFR BUN/Creatinine Ratio Glucose Calcium Magnesium Total Bilirubin AST ALT Alkaline Phosphatase Total Creatine Kinase CK-MB (CK-2) CK-MB (CK-2) Rel Index Troponin I NT-Pro-B Natriuret Pep 22 Total Protein Albumin Globulin Albumin/Globulin Ratio Triglycerides Cholesterol LDL Cholesterol, Calc HDL Cholesterol Lipase SARS-CoV-2 (PCR) Negative 10/14/21 10/14/21 10/14/21 16:43 21:00 21:00 WBC RBC Hgb Hct MCV MCH MCHC RDW Plt Count Neut % (Auto) Lymph % (Auto) [place] % (Auto) Eos % (Auto) Baso % (Auto) Neut # (Auto) Lymph # (Auto) [place] # (Auto) Eos # (Auto) Baso # (Auto) PT INR APTT 42 H D 70 H D Sodium Potassium Chloride Carbon Dioxide BUN Creatinine Estimated GFR BUN/Creatinine Ratio Glucose Calcium Magnesium Total Bilirubin AST ALT Alkaline Phosphatase Total Creatine Kinase 59 CK-MB (CK-2) TNP CK-MB (CK-2) Rel Index TNP Troponin I < 0.012 NT-Pro-B Natriuret Pep Total Protein Albumin Globulin Albumin/Globulin Ratio Triglycerides Cholesterol LDL Cholesterol, Calc HDL Cholesterol Lipase SARS-CoV-2 (PCR) 10/15/21 10/15/21 10/15/21 00:40 06:03 06:03 WBC RBC Hgb Hct MCV MCH MCHC RDW Plt Count Neut % (Auto) Lymph % (Auto) [place] % (Auto) Eos % (Auto) Baso % (Auto) Neut # (Auto) Lymph # (Auto) [place] # (Auto) Eos # (Auto) Baso # (Auto) PT INR APTT Sodium 136 L Potassium 3.4 Chloride 101 Carbon Dioxide 30 BUN 14 Creatinine 0.79 Estimated GFR > 60.0 BUN/Creatinine Ratio 17.7 Glucose 116 H Calcium 9.4 Magnesium 2.0 Total Bilirubin 1.2 AST 52 ALT 65 H Alkaline Phosphatase 65 Total Creatine Kinase 49 L CK-MB (CK-2) TNP CK-MB (CK-2) Rel Index TNP Troponin I < 0.012 < 0.012 NT-Pro-B Natriuret Pep 64 Total Protein 7.2 Albumin 4.0 Globulin 3.2 Albumin/Globulin Ratio 1.3 Triglycerides 121 Cholesterol 204 H LDL Cholesterol, Calc 103 H HDL Cholesterol 77 H Lipase SARS-CoV-2 (PCR) 10/15/21 06:03 WBC 7.2 RBC 4.44 L Hgb 14.2 Hct 41.3 MCV 93.0 MCH 32.0 MCHC 34.4 RDW 14.1 Plt Count 199 Neut % (Auto) 59.9 Lymph % (Auto) 28.7 [place] % (Auto) 9.0 Eos % (Auto) 1.7 L Baso % (Auto) 0.7 Neut # (Auto) 4300 Lymph # (Auto) 2100 [place] # (Auto) 700 Eos # (Auto) 100 Baso # (Auto) 0 PT INR APTT Sodium Potassium Chloride Carbon Dioxide BUN Creatinine Estimated GFR BUN/Creatinine Ratio Glucose Calcium Magnesium Total Bilirubin AST ALT Alkaline Phosphatase Total Creatine Kinase CK-MB (CK-2) CK-MB (CK-2) Rel Index Troponin I NT-Pro-B Natriuret Pep Total Protein Albumin Globulin Albumin/Globulin Ratio Triglycerides Cholesterol LDL Cholesterol, Calc HDL Cholesterol Lipase SARS-CoV-2 (PCR) PFSH Medical History (Updated 10/14/21 @ 17:06 by Bill Evans MD) Hyperlipidemia Hypertension Social History marital status: details: Has multiple family members in the medical field he relies on for advise. household members: spouse lives independently: Yes caregiver/support person: No housing: house Previous occupational history: Retired [employer]. tomy/quaker: Quaker special tomy needs: Yes other: Patient has Advance Directives, DPAHC. Does not wish to starve to . Smoking Status: Never smoker alcohol intake: current substance use type: does not use Discharge Plan Discharge Plan Patient Disposition: Home Provider Discharge Comment: Return if significant chest pain Discharge orders & Medications Prescriptions: New aspirin 325 mg Tablet,Delayed Release (Dr/Ec) 325 mg PO DAILY Qty: 90 0RF atorvastatin [Lipitor] 20 mg tablet 20 mg PO BEDTIME Qty: 90 0RF metoprolol succinate 25 mg tablet extended release 24 hr 25 mg PO BID Qty: 180 0RF Continued losartan-hydrochlorothiazide 50-12.5 mg tablet 1 tab PO BID Qty: 60 3RF Follow up/Referrals: Bill Evans MD [Primary Care Provider] - Diet/Activity/Treatments Diet: Diet as Tolerated Activity: As tolerated Skin/Wound/Dressing Care Report to your healthcare provider any signs of infection, such as:: increased pain Visit Report/Discharge Packet Visit Report Forms: Patient Portal/API Discharge Data Primary Care Provider: Bill Evans Attending Provider: Bill Evans Admit Date/Time: 10/14/21 14:43 Discharges patient from system. Discharge Date/Time: 10/15/21 17:50 Quality VTE Deep Vein Thrombosis/Pulmonary Embolism Present on Admission: No
[2021-10-15 08:41] LABS: PTT Partial Thromboplastin Tim 69 SECONDS (26.4-36.2)
--- NOTE | 2021-10-15 08:51 | CM.DANOTE ---
DCP Assessment: patient is a 66 yr old male who has been having episodes of chest pain and elevated heart rate. Patient had an ECHO and cardiac stress test. Patient is alert and oriented x4. Patient currently live in [place]. Patient is independent at baseline with all ADL's and drives. I: medicare and Commercial insurance P: DC home when medically stable. No identified DC planning needs at this time. CM department will follow to Assist with any new DC planning needs that may arise. Anupama Hannon RN Case Manger Discharge Planning/Care Management Discharge Assessment Start: 10/15/21 08:50 Freq: Status: Active Protocol: Document 10/15/21 08:50 HS (Rec: 10/15/21 08:51 HS [id number]) Discharge Planning Assessment Assigned Hospitalist Physician Anupama Hannon RNmanager of finance DPOA/Assigned Designee Name Brice Morocho () Contact Information [phone] Advance Directives? Yes Advance Directives on File No History Provided By Patient Prior Living Arrangements House Household Members spouse Type of transporation used prior to Drives own vehicle admit Independent with ADL's Yes Is patient alert and oriented? Yes Caregiver for Another No Barriers to Discharge No Discharge Plan Home Referrals Initiated None needed Whiteboard Updated in Patient Room with Yes name and ext. # of Hospitalist Physician Review Status In Process Next Review Type Continued Stay Review
[2021-10-15 09:02] VITALS: BP 108/72; PULSE 74
[2021-10-15] MEDS: ASPIRIN EC 325 MG TABLET PO (09:02)
[2021-10-15] MEDS: LOSARTAN 50 MG TABLET PO (09:02)
[2021-10-15] MEDS: hydroCHLOROthiazide 25 MG TABLET 12.5 MG PO (09:02)
[2021-10-15 09:30] VITALS: BP 108/70; PULSE 68; RESP 17; TEMP 36.1; O2SAT 96
--- NOTE | 2021-10-15 13:20 | PM.TREADMILL ---
Cardiac Stress Test Report Referral & Results Date Patient Seen: 10/15/21 Time Patient Seen: 13:20 Requesting provider: Bill Evans Indication: Chest Pain Rest ECG: Sinus rhythm Procedure Note: Stand Germán protocol, 4:40, 5.6 METS, Reduced exercise capacity, ABDIRASHID + 32% Test stopped due to leg fatigue Test converted to Lexiscan stress test After Lexiscan injection had minimal dsypnea without chest pain No ST changes during peak exercise or after Lexiscan injection No ectopy Impression: Equivocal exercise stress test due to failure to achieve target heart rate Normal Lexiscan stress test MIBI images pending Please note: Actual ECG tracings can be found in the PACS system.
[2021-10-15 15:36] VITALS: BP 116/67; PULSE 82; RESP 18; TEMP 36.3; O2SAT 95
[2021-10-15 15:38] LABS: PTT Partial Thromboplastin Tim 31 SECONDS (26.4-36.2)
[2021-10-15 16:13] VITALS: BP 103/53; PULSE 82; RESP 16; TEMP 36.9; O2SAT 96
[2021-10-15 16:30] VITALS: O2SAT 96
--- NOTE | 2021-10-15 17:41 | DI.NM.S_ITS ---
DATE OF SERVICE: 10/15/2021 PROCEDURE: Pharmacological perfusion study. INDICATION: Chest pain with underlying hypertension and hyperlipidemia. RADIOPHARMACEUTICAL: 27.5 millicurie technetium-99m Myoview IV was injected at stress and 11.7 millicurie technetium-99m Myoview IV was injected at rest. CARDIAC STRESS: The patient underwent initially exercise stress test using Germán protocol, however was able to walk only for 4 minutes and 40 seconds and achieved maximum heart rate of 106 with normal blood pressure response. The patient had leg fatigue and could not walk on treadmill, hence it was discontinued and he was given intravenous Lexiscan, as per protocol. During Lexiscan, no chest pain, but had minimal dyspnea. Baseline rhythm was sinus. During stress, no convincing ischemic changes seen. No significant arrhythmias seen. RAW DATA: There is increased subdiaphragmatic activity. GATED STUDY: Stress LV ejection fraction 70 percent without any obvious wall motion abnormalities. Resting end-diastolic volume 88 mL. TID ratio 0.98, which is within normal limits. Lung/heart ratio 0.35, which is within normal limits. MYOCARDIAL PERFUSION SCAN: Stress supine, resting supine images revealed small size, mildly decreased perfusion of distal anterior wall ,which got completely resolved during stress prone images, suggestive of tissue attenuation artifact. Stress prone images revealed normal myocardial perfusion. CONCLUSION: I will call this study a normal myocardial perfusion study with evidence of tissue attenuation artifact, which got resolved during stress prone images. Preserved left ventricular function. No transient ischemic dilatation. No obvious ischemic EKG changes. Poor exercise tolerance. Had leg discomfort. Consider peripheral artery disease workup. As far as perfusion scan, this is a low-risk myocardial perfusion scan. Olvin Rios - MYRANDA/ester/berta doc#: [id number]/job#: [id number] dd: 10/15/2021 16:45:00 dt: 10/15/2021 17:33:00 DICTATING /COPIES TO: Kell Fields MD COPIES MNE: CARLO;
--- NOTE | 2021-10-15 17:52 | PC.NURSE ---
Pt A&Ox3, VSS, afebrile on RA. He denies CP throughout the day, SOB, or dizziness. MD at bedside evaluating patient.Heparin drip discontinued this a.m. He completes stress test, and echo and later this evening is cleared for discharge home with prescriptions. arrived at bedside. Both patient and verbalize understanding of discharge plan, medications, Blood pressure medications and parameters, how to assess BP at home and following up with MD Evans early next week. He is escorted via w/ch with all of his belongings to private vehicle with for discharge home at 1750 this evening.
== END 2021-10-15 17:50 | disposition home or self-care (01) ==
LOC: ED 13:03 → AC 14:44
PROVIDERS: Admitting Provider Family Medicine; Emergency Provider Emergency Medicine; PCP Family Medicine; Referring Provider Emergency Medicine; Visit Provider Family Medicine
DX: I20.0 Unstable angina (principal); R07.9 Chest pain, unspecified; I10 Essential (primary) hypertension; E78.5 Hyperlipidemia, unspecified; Z20.822 Contact with and (suspected) exposure to COVID-19
CPT/HCPCS: 36415; 71045; 78452; 80053; 80061; 82550; 83690; 83735; 83880; 84484; 85025; 85610; 85730; 87635; 93005; 93010; 93017; 93306; 94760; 96365; 96366; 96375; 99284; 99291; C9803; G0378; A9502; J1644; J2785

== ENCOUNTER → 2024-02-28 16:51 | Outpatient (CLI) | payer MEDICARE, OTHER, SELFPAY ==
[2021-10-14 16:25] VITALS: BMI 30.1
--- NOTE | 2024-02-28 16:52 | DI.US.S_ITS ---
PROCEDURE: US PERIPH VENOUS LOW EXTREM RT INDICATIONS: Pain in RLE x 1 week; worse with exercise TECHNIQUE: Real-time imaging, as well as color and pulse Doppler interrogation, were performed of the lower extremity deep veins from the inguinal ligament to the popliteal fossa, with documentation of the visualized calf veins. COMPARISON: None. FINDINGS: The common femoral, femoral, popliteal, and the visualized calf veins are normally compressible, and free of intraluminal thrombus. Color and pulse Doppler demonstrate normal phasic intraluminal flow. There is normal augmentation response to distal compression maneuver. IMPRESSION: No findings of lower extremity deep venous thrombosis. Dictated by: Jaye Chin M.D. on 02/29/2024 at 11:14 Approved by: Jaye Chin M.D. on 02/29/2024 at 11:16
== END ==
PROVIDERS: PCP Family Medicine; Referring Provider Physician Assistant; Visit Provider Physician Assistant
DX: M79.661 Pain in right lower leg (principal)
CPT/HCPCS: 93971

== ENCOUNTER → 2024-04-30 09:59 | Outpatient (CLI) | payer MEDICARE, OTHER, SELFPAY ==
[2021-10-14 16:25] VITALS: BMI 30.1
[2024-04-30 12:40] LABS: Add Manual Diff / Slide Review NO; Basophils Absolute Auto 0 /uL (0-100); Basophils Percent Auto 0.8 % (0-2); Eosinophils Absolute Auto 200 /uL (0-450); Eosinophils Percent Auto 3.1 % (2-4); Hematocrit 41.5 % (41-53); Hemoglobin 14.1 g/dL (13.5-17.5); Lymphocytes Absolute Auto 1500 /uL (1100-4500); Lymphocytes Percent Auto 23.4 % (25-40); Mean Corpuscular Hemoglobin 30.5 PG (26-34); Mean Corpuscular Volume 89.8 fL (80-100); Monocytes Absolute Auto 600 /uL (0-900); Monocytes Percent Auto 8.6 % (3-14); Neutrophils Absolute Auto 4200 /uL (1500-7000); Neutrophils Percent Auto 64.1 % (50-75); Platelet Count 221 X10^3/uL (150-400); Red Blood Cell Count 4.62 X10^6/uL (4.5-5.9); Red Cell Distribution Width 14.1 % (11.6-14.8); White Blood Cell Count 6.5 X10^3/uL (4.5-11.0)
[2024-04-30 13:15] LABS: Hemoglobin A1C% w Est Avg Glu 6.1 % (4.0-6.0)
[2024-04-30 13:24] LABS: Alanine Aminotransferase 43 IU/L (<50); Albumin 4.4 g/dL (3.5-5.0); Albumin Globulin Ratio 1.7 (1.0-2.8); Alkaline Phosphatase 73 U/L (38-126); Aspartate Aminotransferase 42 IU/L (17-59); BUN Creatinine Ratio 18.9 (6-22); Bilirubin Total 1.4 mg/dL (0.2-1.3); Blood Urea Nitrogen 14 mg/dL (9-20); Calcium 9.2 mg/dL (8.4-10.2); Carbon Dioxide 26 mmol/L (22-32); Chloride 103 mmol/L (98-107); Cholesterol 157 mg/dL (140-199); Estimated Glomerular Filt Rate > 60 mL/min (>60); Globulin 2.6 g/dL (1.7-4.1); Glucose 115 mg/dL (80-110); HDL Cholesterol 63 mg/dL (40-60); HEMOLYSIS 55 (0-50); LDL Cholesterol Calculated 70 mg/dL (<100); Potassium 4.2 mmol/L (3.4-5.1); Sodium 139 mmol/L (137-145); Triglycerides 121 mg/dL (35-150)
[2024-04-30 13:50] LABS: TSH w/ Reflex to FT4 2.78 uIU/mL (0.47-4.68)
[2024-04-30 13:51] LABS: Prostate Specific Antigen Scrn 2.29 ng/mL (0.1-4.0)
[2024-04-30 15:13] LABS: Creatinine Urine Random 146.39 mg/dL
[2024-04-30 15:17] LABS: Microalbumin Urine Random 1.4 mg/dL (0-1.6)
== END ==
PROVIDERS: PCP Family Medicine; Referring Provider Physician Assistant; Visit Provider Physician Assistant
DX: I10 Essential (primary) hypertension (principal); R73.9 Hyperglycemia, unspecified; Z12.5 Encounter for screening for malignant neoplasm of prostate; M79.661 Pain in right lower leg; E78.5 Hyperlipidemia, unspecified
CPT/HCPCS: 36415; 80053; 80061; 82043; 82570; 83036; 84443; 85025; G0103